=== PATIENT | female | born 1955 | race Hispanic/Latino ===

== ENCOUNTER 2021-09-22 09:24 | Outpatient (CLI) | payer MEDICARE | END 2021-09-22 09:25 | disposition home or self-care (01) | LOC: CSHLAB 09:24 | PROVIDERS: ATTEND Student in an Organized Health Care Education/Training Program | DX: Z01.818 Encounter for other preprocedural examination (principal); Z20.822 Contact with and (suspected) exposure to COVID-19; I47.1 Supraventricular tachycardia | CPT/HCPCS: 80048; 85027; 86850; 86900; 86901; 93005; 93010; U0003; U0005 ==

== ENCOUNTER 2021-09-24 05:41 | Day surgery (SDC) | payer MEDICARE ==
[2021-09-22 11:15] LABS: Hemoglobin 12.2 g/dL (12.0-15.5); Mean Corpuscular HGB CONC 31.5 g/dL (32.0-36.0); Mean Corpuscular Hemoglobin 28.2 pg (27.0-33.0); Mean Corpuscular Volume 89.4 fl (81.6-98.3); Mean Platelet Volume 10.5 fl (7.4-10.4); Platelet Count 418 10x3/uL (150-450); Red Blood Cell (RBC) Count 4.33 10x6/uL (3.90-5.03); White Blood Cell (WBC) Count 6.9 10x3/uL (3.5-10.5)
[2021-09-22 11:50] LABS: Anion Gap 13 mmol/L (10-20); BUN (Urea Nitrogen) 13 mg/dL (9.8-20.1); Calc. Creatinine Clearance 0 mL/min (70-130); Calcium 9.2 mg/dL (7.8-10.44); Carbon Dioxide 27 mmol/L (23-31); Chloride 105 mmol/L (98-107); Glucose 83 mg/dL (80-115); Potassium 4.3 mmol/L (3.5-5.1); Sodium 141 mmol/L (136-145)
[2021-09-22 19:45] LABS: SARS-CoV-2 PCR by NAA Not Detected (NotDetected)
[2021-09-23 15:28] VITALS: BMI 26.9
[2021-09-24] MEDS ORDERED: Midazolam HCl 2 mg/2 ml Vial ONE (06:44)
[2021-09-24] MEDS ORDERED: Ondansetron PF 4 MG/2 ML Vial ONE (06:44)
[2021-09-24] MEDS ORDERED: PROPOFOL 20 ML ONE (06:44)
[2021-09-24] MEDS ORDERED: Fentanyl 250 MCG/5 ML VIAL ONE (06:44)
[2021-09-24] MEDS ORDERED: Lidocaine 1% PF 5 ML VIAL ONE (06:44)
[2021-09-24] MEDS ORDERED: Rocuronium Bromide 10 MG/ML (10ML VIAL) ONE (06:44)
[2021-09-24] MEDS ORDERED: Ketorolac Tromethamine 30 MG/ML VIAL ONE (06:45)
[2021-09-24] MEDS ORDERED: Lidocaine 1% MPF 2 ML VIAL ONE (06:56)
[2021-09-24] MEDS ORDERED: EPINEPHrine 1 MG/ML AMP ONE (06:57)
[2021-09-24] MEDS ORDERED: Bupivacaine PF 0.5% 30 ML VIAL ONE (06:57)
[2021-09-24] MEDS ORDERED: Lidocaine 1% w/Epinephrine 1:100K 20 ML VIAL ONE (06:58)
[2021-09-24] MEDS ORDERED: Gabapentin 300 MG CAP ONE (07:36)
[2021-09-24] MEDS ORDERED: CeleCOXIB 100 MG CAP ONE (07:37)
[2021-09-24] MEDS ORDERED: ceFAZolin 2 GM/Dextrose 50 ML IVPB ONE (07:40)
[2021-09-24] MEDS ORDERED: Glycopyrrolate 0.2 MG/ML 5 ML SYRINGE ONE (08:04)
[2021-09-24] MEDS ORDERED: Promethazine HCl 25 MG/ML VIAL IM PRN (10:20)
[2021-09-24] MEDS ORDERED: Ondansetron PF 4 MG/2 ML Vial IVP PRN (10:20)
[2021-09-24] MEDS ORDERED: traMADol HCl 50 MG TAB PO PRN (10:20)
[2021-09-24] MEDS ORDERED: diphenhydrAMINE 25 MG CAP PO PRN (10:20)
[2021-09-24] MEDS ORDERED: HYDROcodone/Acetaminophen 5/325 mg Tablet PO PRN (10:20)
[2021-09-24] MEDS ORDERED: Bisacodyl 10 MG SUPP PR PRN (10:20)
[2021-09-24] MEDS ORDERED: Fentanyl 100 MCG/2 ML VIAL ONE (10:55)
[2021-09-24] MEDS: Fentanyl 100 MCG/2 ML VIAL SLOW IVP PRN ×3 (12:00→22:21)
[2021-09-24] MEDS: Sodium Chloride 0.9% 1,000 ML IV SCH (12:59)
[2021-09-24] MEDS ORDERED: Morphine 4 MG/ML VIAL SLOW IVP SCH (13:00)
[2021-09-24] MEDS: Ketorolac Tromethamine 30 MG/ML VIAL IVP SCH ×3 (13:00→20:12)
[2021-09-24] MEDS: Simethicone Chewable 80 MG TAB PO PRN (13:06)
[2021-09-24] MEDS: Zolpidem Tartrate 5 MG TAB PO PRN (22:21)
[2021-09-24] MEDS: Docusate 100 MG CAP PO SCH (22:21)
[2021-09-25] MEDS: Zolpidem Tartrate 5 MG TAB PO PRN (00:52)
[2021-09-25] MEDS: Ketorolac Tromethamine 30 MG/ML VIAL IVP SCH ×3 (00:55→13:15)
[2021-09-25 05:42] LABS: Hemoglobin 10.7 g/dL (12.0-15.5); Mean Corpuscular HGB CONC 32.5 g/dL (32.0-36.0); Mean Corpuscular Hemoglobin 28.7 pg (27.0-33.0); Mean Corpuscular Volume 88.2 fl (81.6-98.3); Mean Platelet Volume 10.3 fl (7.4-10.4); Platelet Count 372 10x3/uL (150-450); RBC Distribution Width 15.1 % (11.5-14.5); Red Blood Cell (RBC) Count 3.73 10x6/uL (3.90-5.03); White Blood Cell (WBC) Count 13.4 10x3/uL (3.5-10.5)
[2021-09-25] MEDS: Sodium Chloride 0.9% 1,000 ML IV SCH ×2 (05:45→14:35)
[2021-09-25] MEDS: Docusate 100 MG CAP PO SCH (08:31)
[2021-09-25] MEDS: Simethicone Chewable 80 MG TAB PO PRN (08:32)
[2021-09-25] MEDS ORDERED: Hydrochlorothiazide 25 MG TAB PO SCH (09:00)
[2021-09-25] MEDS ORDERED: Non-Formulary Medication 1 EACH (Omeprazole [Omeprazole] 20 MG Capsule.Dr) PO SCH (09:00)
[2021-09-25] MEDS ORDERED: Lisinopril 10 MG TAB PO SCH (09:00)
[2021-09-25] MEDS ORDERED: pyridOXINE 50 MG (B6) TAB PO SCH (09:00)
[2021-09-25] MEDS ORDERED: Cholecalciferol 1,000 UNITS (25 MCG) TAB PO SCH (09:00)
[2021-09-25] MEDS ORDERED: Ubidecarenone 50 MG CAP PO SCH (09:00)
[2021-09-25] MEDS: HYDROcodone/Acetaminophen 5/325 mg Tablet PO PRN ×2 (09:12→14:36)
[2021-09-25 11:51] VITALS: BP 139/76; TEMP 97.8
[2021-09-29] MEDS ORDERED: Ibuprofen 600 MG TAB PO SCH (22:00)
== END 2021-09-25 14:45 | disposition home or self-care (01) ==
LOC: CSHSDC 05:41 → CSHPED 11:53 → UNDOADMIN 11:53 → CSHSDC 09-25 14:45 → UNDODISIN 09-25 14:45
PROVIDERS: ATTEND Student in an Organized Health Care Education/Training Program
PROC: 0USG4ZZ Reposition Vagina, Percutaneous Endoscopic Approach (ICD-10-PCS; principal; 2021-09-24)
PROC: 0UT94ZZ Resection of Uterus, Percutaneous Endoscopic Approach (ICD-10-PCS; 2021-09-24)
PROC: 0UT24ZZ Resection of Bilateral Ovaries, Percutaneous Endoscopic Approach (ICD-10-PCS; 2021-09-24)
PROC: 0UT74ZZ Resection of Bilateral Fallopian Tubes, Percutaneous Endoscopic Approach (ICD-10-PCS; 2021-09-24)
PROC: 0JQC0ZZ Repair Pelvic Region Subcutaneous Tissue and Fascia, Open Approach (ICD-10-PCS; 2021-09-24)
DX: N81.3 Complete uterovaginal prolapse (principal); K40.20 Bilateral inguinal hernia, without obstruction or gangrene, not specified as recurrent; N88.8 Other specified noninflammatory disorders of cervix uteri; D25.9 Leiomyoma of uterus, unspecified; I10 Essential (primary) hypertension; K21.9 Gastro-esophageal reflux disease without esophagitis; Z79.899 Other long term (current) drug therapy; Z20.822 Contact with and (suspected) exposure to COVID-19
CPT/HCPCS: 57250; 57425; 58571; 80048; 85027; 86850; 86900; 86901; U0003; U0005; 36415; 88307; J0171; J0690; J1885; J2250; J2270; J2405; J2704; J3010; J7050; S0020

== ENCOUNTER 2022-02-06 09:49 | Outpatient (CLI) | payer MEDICARE | END 2022-02-06 09:50 | disposition home or self-care (01) | LOC: CSHRAD 09:49 | PROVIDERS: ATTEND Student in an Organized Health Care Education/Training Program | DX: M54.6 Pain in thoracic spine (principal); M47.814 Spondylosis without myelopathy or radiculopathy, thoracic region; M47.816 Spondylosis without myelopathy or radiculopathy, lumbar region | CPT/HCPCS: 72072; 72100 ==

== ENCOUNTER 2022-08-07 10:02 | Outpatient (CLI) | payer MEDICARE | END 2022-08-07 10:03 | disposition home or self-care (01) | LOC: CSHMAMMO 10:02 | PROVIDERS: ATTEND Student in an Organized Health Care Education/Training Program | DX: Z12.31 Encounter for screening mammogram for malignant neoplasm of breast (principal); Z13.820 Encounter for screening for osteoporosis; Z78.0 Asymptomatic menopausal state; M85.88 Other specified disorders of bone density and structure, other site | CPT/HCPCS: 77063; 77067; 77080 ==

== ENCOUNTER 2023-07-26 12:16 | Outpatient (CLI) | payer MEDICARE | END 2023-07-26 12:17 | disposition home or self-care (01) | LOC: CSHRAD 12:16 | PROVIDERS: ATTEND Family Medicine | DX: M79.602 Pain in left arm (principal) ==

== ENCOUNTER 2025-05-17 10:22 | Outpatient (CLI) | payer MEDICARE ==
[2025-05-17 11:27] LABS: #Basophils 0.08 10x3/uL (0.0-0.2); #Eosinophils 0.08 10x3/uL (0.0-0.5); #Monocytes 0.49 10x3/uL (0.0-1.1); #Neutrophils 5.71 10x3/uL (1.5-8.4); %Basophils 1.0 % (0.0-2.0); %Eosinophils 1.0 % (0.0-6.0); %Lymphocytes 19.2 % (18.0-47.0); %Monocytes 6.2 % (0.0-10.0); %Neutrophils 71.8 % (40.0-75.0); Hematocrit 35.1 % (34.9-44.5); Hemoglobin 11.0 g/dL (12.0-15.5); Mean Corpuscular Hemoglobin 28.0 pg (27.0-33.0); Mean Corpuscular Volume 89.3 fL (81.6-98.3); Platelet Count 352 10x3/uL (150-450); Red Blood Cell (RBC) Count 3.93 10x6/uL (3.90-5.03); White Blood Cell (WBC) Count 7.95 10x3/uL (3.5-10.5)
[2025-05-17 11:43] LABS: Anion Gap 14 mmol/L (10-20); BUN (Urea Nitrogen) 20 mg/dL (9.8-20.1); Calc. Creatinine Clearance 0 mL/min (70-130); Calcium 9.0 mg/dL (7.8-10.44); Carbon Dioxide 26 mmol/L (23-31); Chloride 105 mmol/L (98-107); Glucose 83 mg/dL (80-115); Potassium 4.0 mmol/L (3.5-5.1); Sodium 141 mmol/L (136-145)
== END 2025-05-17 10:23 | disposition home or self-care (01) ==
LOC: CSHLAB 10:22
PROVIDERS: ATTEND Surgery
DX: Z01.812 Encounter for preprocedural laboratory examination (principal); K40.20 Bilateral inguinal hernia, without obstruction or gangrene, not specified as recurrent
CPT/HCPCS: 80048; 85025

== ENCOUNTER 2025-06-08 07:26 | Observation (INO) | payer MEDICARE ==
[2025-06-06 10:09] VITALS: BMI 28.7
[2025-06-08] MEDS ORDERED: CEFAZOLIN 2 GM VIAL ONE (07:57)
[2025-06-08] MEDS ORDERED: Bupivacaine/Epinephrine 0.25% 30 ML VIAL ONE (07:58)
[2025-06-08] MEDS ORDERED: PROPOFOL 40 ML ONE (08:27)
[2025-06-08] MEDS ORDERED: SUGAMMADEX SODIUM 200 MG/2 ML VIAL ONE (08:27)
[2025-06-08] MEDS ORDERED: Lidocaine 1% PF 5 ML VIAL ONE (08:27)
[2025-06-08] MEDS ORDERED: Ondansetron PF 4 MG/2 ML Vial ONE (08:27)
[2025-06-08] MEDS ORDERED: Rocuronium Bromide 10 MG/ML (10ML VIAL) ONE (08:27)
[2025-06-08] MEDS ORDERED: HYDROmorphone 0.5 MG/0.5 ML SYRINGE ONE (11:06)
[2025-06-08] MEDS ORDERED: HYDROcodone/Acetaminophen 5/325 mg Tablet ONE (11:33)
== END 2025-06-08 12:20 | disposition home or self-care (01) ==
LOC: CSHSDC 07:26 → CSHTELE 07:33 → INTOOBSV 07:33
PROVIDERS: ADMIT Surgery; ATTEND Surgery
PROC: 0YUA4JZ Supplement Bilateral Inguinal Region with Synthetic Substitute, Percutaneous Endoscopic Approach (ICD-10-PCS; principal; 2025-06-08)
DX: K40.20 Bilateral inguinal hernia, without obstruction or gangrene, not specified as recurrent (principal); Z90.710 Acquired absence of both cervix and uterus; Z88.8 Allergy status to other drugs, medicaments and biological substances; Z88.1 Allergy status to other antibiotic agents
CPT/HCPCS: 49650; C1781 ×2; J1100; J1171; J2405; J2704; J3010; S2900